=== PATIENT | female | born 1950 | race African-American/Black ===

== ENCOUNTER 2016-11-23 16:42 | Inpatient (IN) | payer OTHER, MEDICAID ==
[~2016-11-23] VITALS: Ht 175.3 cm; Wt 101.2 kg
[~2016-11-23 16:42] MED LIST: ALLO100T PO; AMLO5TAB4 PO; AMLO5TAB92 PO; ASPI81TA2 PO; BENA40TA2 PO; CALC0.258 PO; CINN1POW PO; COD1CAPS PO; DOCU250C PO; DOXA2TAB PO; FERR-31 PO; FERR-57 PO; GEMF600T3 PO; GLIP10TA11 PO; HYDR25TA4 PO; INDO50CA PO; LOP600 PO; LUTE20CA PO; METF-305 PO; NOR10 PO; UBID60CA6 PO; VIT1TABL44 PO
[2016-11-23 20:30] VITALS: BP 157/76; PULSE 63; RESP 20; TEMP 98.8; O2SAT 93
[2016-11-23 20:45] VITALS: PULSE 61; RESP 18; TEMP 98.4; O2SAT 95
--- NOTE | 2016-11-23 21:14 | NUR ---
OPENING NOTES PATIENT IS SITTING IN SEMI-ORTEGA'S POSITION. AAO X4, EVEN AND UNLABORED RESPIRATIONS. NO S/S OF ACUTE DISTRESS NOTED. FAMILY AT BEDSIDE. BED IN LOWEST POSITION, CALL LIGHT WITHIN REACH.
[2016-11-23] MEDS ORDERED: INSULIN REGULAR, HUMAN 100 UNITS/ML, 10 ML VIAL (novoLIN R) SUBCUT PRN (21:30)
[2016-11-23] MEDS ORDERED: DEXTROSE 50% JECT 50 ML DISP.SYRIN IVP PRN (21:30)
[2016-11-23 21:46] LABS: BASOPHILS # (AUTO) 0.1 K/uL (0.0-0.2); BASOPHILS % (AUTO) 2.1 % (0.0-2.0); EOSINOPHILS # (AUTO) 0.2 K/uL (0.0-0.4); EOSINOPHILS % (AUTO) 4.2 % (0.0-4.0); LYMPHOCYTES # (AUTO) 0.8 K/uL (1.0-5.5); LYMPHOCYTES % (AUTO) 13.9 % (20.5-51.5); MEAN CORPUSCULAR HEMOGLOBIN 26 pg (27-31); MEAN CORPUSCULAR HGB CONC 31 % (32-36); MEAN CORPUSCULAR VOLUME 85 fL (79.0-98.0); MONOCYTES # (AUTO) 0.4 K/uL (0.0-1.0); MONOCYTES % (AUTO) 7.3 % (1.7-9.3); NEUTROPHILS # (AUTO) 4.1 K/uL (1.8-7.7); NEUTROPHILS % (AUTO) 72.5 % (40.0-70.0); PLATELET COUNT (AUTO) 318 K/uL (130-430); RED CELL DISTRIBUTION WIDTH 16.8 % (9.0-15.0); WHITE BLOOD COUNT (AUTO) 5.6 K/uL (4.8-10.8)
--- NOTE | 2016-11-23 21:54 | NUR ---
CRITICAL VALUE H/H CRITICAL VALUE, LAB CALLED H/H 6.0/19.6.
[2016-11-23 21:55] LABS: HEMATOCRIT 19.6 % (36-48)
--- NOTE | 2016-11-23 21:56 | NUR ---
DR. ADAMSON CRITICAL VALUE NOTIFICATION DR. ADAMSON ON ROUNDS, REPORTED CRITICAL VALUE IN PERSON AT [id number]. NEW ORDERS PLACED.
[2016-11-23 22:10] LABS: CALCIUM 9.2 mg/dL (8.4-11.0); CREATININE 4.17 mg/dL (0.55-1.30); POTASSIUM 4.7 mmol/L (3.5-5.1)
[2016-11-23 22:15] LABS: ALBUMIN 3.3 g/dL (3.4-4.8); TOTAL BILIRUBIN 0.4 mg/dL (0.0-1.0); TOTAL PROTEIN, SERUM 7.2 g/dL (6.4-8.3)
[2016-11-23] MEDS ORDERED: FUROSEMIDE 40 MG/4 ML VIAL IVP ONE (22:15)
[2016-11-23 22:25] LABS: IRON (SERUM) 18 mcg/dL (37-145); TOTAL IRON BIND. CAPACITY 231 ug/dL (250-450)
--- NOTE | 2016-11-23 22:42 | NUR ---
CONSULT: CONSULT CALLED FOR DR. LU HERNANDEZ SPOKE WITH SARA TREJO IS FIELD RETURN REPAIRER FOR DR. LEIGH REASON FOR CONSULT: R.F. NUMBER I CALLED: [phone]
[2016-11-23] MEDS ORDERED: PANTOPRAZOLE GRANULES PACKET 40 MG GT ONE (23:15)
[2016-11-24] VITALS (7 sets, daily range): BP systolic 161–190; BP diastolic 74–110; PULSE 55–98; RESP 18–20; TEMP 97–98.2; O2SAT 95–100
[2016-11-24] MEDS ORDERED: SOD FERRIC GLUC COMPLEX/SUC 125 MG in NS 100 ML IV SCH ×2
[2016-11-24] MEDS ORDERED: IPRATROPIUM/ALBUTEROL SULFATE 3 ML AMPUL.NEB INH PRN (00:15)
--- NOTE | 2016-11-24 01:15 | NUR ---
BLOOD TRANSFUSION START 1 UNIT PACKED RED BLOOD CELLS
--- NOTE | 2016-11-24 01:30 | NUR ---
15 MIN INTO BLOOD TRANSFUSION PATIENT IS TOLERATING WELL. NO S/S OF REJECTION OR ACUTE DISTRESS NOTED. RESPIRATIONS EVEN AND UNLABORED, OXYGEN SATURATION IS 100% ON 2L NASAL CANNULA. SKIN IS WARM AND DRY TO TOUCH. PATIENT DENIES PAIN OR DISCOMFORT. BED IN LOWEST POSITION, BED ALARM ON, CALL LIGHT WITHIN REACH. WILL CONTINUE TO MONITOR CLOSELY.
--- NOTE | 2016-11-24 03:52 | NUR ---
ROUNDS PATIENT IS SLEEPING IN SEMI-ORTEGA'S POSITION. NO ACUTE S/S OF DISTRESS NOTED. VISIBLE RISE AND FALL OF CHEST, EVEN RESPIRATIONS.BED IN LOWEST POSITION, BED ALARM ON, CALL LIGHT WITHIN REACH. WILL CONTINUE TO MONITOR FREQUENTLY.
--- NOTE | 2016-11-24 04:20 | NUR ---
BLOOD TRANSFUSION COMPLETE PATIENT TOLERATED WELL.
--- NOTE | 2016-11-24 05:25 | NUR ---
BLOOD TRANSFUSION #2 START
--- NOTE | 2016-11-24 05:42 | NUR ---
15 MINUTES INTO BLOOD TRANSFUSION #2 PATIENT IS TOLERATING WELL. AAOX4. IV PATENT AND INFUSING. VITAL SIGNS WITHIN PATIENTS NORMAL LIMITS. NO S/S OF ACUTE DISTRESS NOTED. WILL CONTINUE TO MONITOR CLOSELY. BED IN LOWEST POSITION, BED ALARM ON, CALL LIGHT WITHIN REACH.
[2016-11-24 06:21] LABS: BILIRUBIN,URINE NEGATIVE (NEGATIVE); CLARITY/URINE CLEAR (CLEAR); COLOR,URINE YELLOW (YELLOW); GLUCOSE,URINE NEGATIVE (NEGATIVE); KETONES,URINE NEGATIVE (NEGATIVE); LEUKOCYTE ESTERASE ,URINE NEGATIVE (NEGATIVE); NITRITE, URINE NEGATIVE (NEGATIVE); PROTEIN URINE 3+ (NEGATIVE); UROBILINOGEN,URINE 0.2 (0.2-1.0)
[2016-11-24 06:42] LABS: BLOOD, URINE TRACE (NEGATIVE)
[2016-11-24 06:43] LABS: BACTERIA,URINE RARE /HPF (None Seen); RBC,URINE 0-3 /HPF (0-3); WBC,URINE 0-3 /HPF (0-3); YEAST,URINE Few /HPF (None Seen)
--- NOTE | 2016-11-24 07:20 | NUR ---
CLOSING NOTES REPORT GIVEN TO LEONOR AT BEDSIDE. BLOOD TRANSFUSION RUNNING. NO S/S OF ACUTE DISTRESS NOTED. 2L O2 TITRATION BY NASAL CANNULA WITH OXYGEN SATURATION AT 99-100%. PATIENT IS SITTING UP IN BED. BED IN LOWEST POSITION, BED ALARM ON, CALL LIGHT WITHIN REACH.
--- NOTE | 2016-11-24 07:55 | NUR ---
END BLOOD TRANSFUSION PATIENT TOLERATED WELL. IV PATENT, NO S/S OF ALLERGIC REACTION. PATIENT DENIES PAIN AND SHORTNESS OF BREATH.
--- NOTE | 2016-11-24 08:00 | NUR ---
Initial note PT LAYING IN BED, RESTING, EASY TO AROUSE, ALERT AND ORIENTED X4, NO S/S OF DISTRESS OR COMPLAINT OF PAIN, BP ELEVATED, WILL GIVE AM BLOOD PRESSURE MEDICATION AND FOLLOW UP, BLOOD TRANSFUSION COMPLETE, IV FLUSHED AND SALINE LOCKED, BLE NOTED, PT REFUSES SCD PLACEMENT DESPITE EDUCATION, PLAN OF CARE DISCUSSED WITH PATIENT, PT VERBALIZED UNDERSTANDING, PT REORIENTED OT USE OF CALL LIGHT AND IT IS PLACED WITHIN REACH, SAFETY MEASURES IN PLACE, BED IN LOW POSITION AND LOCKED, WILL FOLLOW UP
[2016-11-24] MEDS: DOXAZOSIN MESYLATE 2 MG TABLET PO SCH ×2 (08:23→21:36)
[2016-11-24] MEDS: ASPIRIN 81 MG TAB.CHEW PO SCH (08:23)
[2016-11-24] MEDS: FERROUS SULFATE 325 MG TABLET.DR PO SCH ×3 (08:23→21:35)
[2016-11-24] MEDS: NEPHROVITE, (FOLIC ACID/VITAMIN B COMP W-C 1 TAB) PO SCH (08:23)
[2016-11-24] MEDS: BENAZEPRIL HCL 20 MG TABLET (LOTENSIN) PO SCH (08:24)
[2016-11-24] MEDS: amLODIPine BESYLATE 10 MG TABLET PO SCH (08:24)
[2016-11-24] MEDS: ALLOPURINOL 100 MG TABLET (ZYLOPRIM) PO SCH (08:24)
[2016-11-24] MEDS: CALCITRIOL 0.25 MCG CAPSULE PO SCH (08:24)
[2016-11-24] MEDS: GEMFIBROZIL 600 MG TABLET (LOPID) PO SCH ×2 (08:24→21:36)
[2016-11-24] MEDS: PANTOPRAZOLE GRANULES PACKET 40 MG GT SCH ×2 (08:25→21:36)
[2016-11-24] MEDS: FUROSEMIDE 40 MG/4 ML VIAL IVP SCH ×2 (08:25→22:50)
[2016-11-24] MEDS: DOCUSATE SODIUM 250 MG CAPSULE PO SCH ×2 (08:25→21:35)
[2016-11-24] MEDS ORDERED: EPOETIN ALFA 4,000 UNITS/ML VIAL SUBCUT SCH (09:00)
[2016-11-24] MEDS: SOD FERRIC GLUC COMPLEX/SUC 125 MG in NS 100 ML IV SCH (09:12)
--- NOTE | 2016-11-24 09:37 | NUR ---
Nutrition Update Charles Scale 14 noted. Pt admitted for severe anemia. Diet: regular, CCHO low carb-45 gm, PRO 60 gms BMI: 32.9 kg/m2 RD to follow per nutrition care standards.
--- NOTE | 2016-11-24 10:00 | NUR ---
ROUNDS PT SITTING UP IN BEDSIDE CHAIR, PT STATES SHE HAS NO NEEDS AT THIS TIME, SAFETY MEASURES IN PLACE, CALL LIGHT WITHIN REACH, WILL FOLLOW UP.
--- NOTE | 2016-11-24 12:00 | NUR ---
DR LEIGH TO REVIEW CONSULT. MADE AWARE OF PATIENTS HISTORY AND CURRENT LAB RESULTS, ORDERED BMP IN AM, US OF RENAL, AND MCGHEE CATHETER PLACEMENT, WILL PLACE ORDERS AND FOLLOW UP
[2016-11-24 12:30] LABS: BASOPHILS % (AUTO) 0.4 % (0.0-2.0); EOSINOPHILS # (AUTO) 0.2 K/uL (0.0-0.4); EOSINOPHILS % (AUTO) 3.6 % (0.0-4.0); HEMATOCRIT 23.7 % (36-48); HEMOGLOBIN 7.4 g/dL (12.0-16.0); LYMPHOCYTES # (AUTO) 0.6 K/uL (1.0-5.5); MEAN CORPUSCULAR HEMOGLOBIN 26 pg (27-31); MEAN CORPUSCULAR HGB CONC 31 % (32-36); MEAN CORPUSCULAR VOLUME 84 fL (79.0-98.0); MONOCYTES # (AUTO) 0.4 K/uL (0.0-1.0); MONOCYTES % (AUTO) 5.6 % (1.7-9.3); NEUTROPHILS # (AUTO) 5.1 K/uL (1.8-7.7); NEUTROPHILS % (AUTO) 81.4 % (40.0-70.0); PLATELET COUNT (AUTO) 290 K/uL (130-430); RED BLOOD CELL COUNT(AUTO) 2.81 MIL/uL (4.2-6.2); RED CELL DISTRIBUTION WIDTH 15.2 % (9.0-15.0); WHITE BLOOD COUNT (AUTO) 6.3 K/uL (4.8-10.8)
--- NOTE | 2016-11-24 12:30 | NUR ---
AVIATION ELECTRONICS TECHNICIAN REPORTED PT BLOOD PRESSURE 186/88, WILL FOLLOW UP WITH PRN BLOOD PRESSURE MEDICATION.
[2016-11-24 12:51] LABS: CALCIUM 9.1 mg/dL (8.4-11.0); CREATININE 4.17 mg/dL (0.55-1.30); PHOSPHORUS 4.1 mg/dL (2.7-4.5); POTASSIUM 4.5 mmol/L (3.5-5.1); THYROID STIMULATING HORMONE 0.41 uIu/mL (0.34-4.82)
--- NOTE | 2016-11-24 13:20 | NUR ---
PT REFUSED MCGHEE CATHETER INSERTION DESPITE EDUCATION, PT STATES SHE WILL THIN ABOUT IT BUT AT THE MOMENT THE ANSWER IS NO, PT ALSO STATES SHE HAS BEEN TOLD BEFORE THAT SHE SHOULD BE ON DIALYSIS AND REFUSES THAT
[2016-11-24] MEDS: cloNIDine HCL 0.2 MG TABLET PO PRN ×2 (14:02→21:36)
--- NOTE | 2016-11-24 14:45 | NUR ---
LANDRY WOUND CARE NURSE ASSESSED PATIENTS WOUND TO LEFT BUTTOCK , PT EDUCATED THAT WOUND IS CAUSED BY MOISTURE DUE TO PATIENT USE OF ADULT DIAPERS, PT STATES SHE HAS TO USE THEM DUE TO LEAKAGE, PT STATES SHE WILL CONTINUE TO USE DESPITE EDUCATION. TREATMENT IS APPLICATION OF MOISTURE BARRIER AND MONITOR. PT VERBALIZED UNDERSTANDING. WILL FOLLOW UP
--- NOTE | 2016-11-24 15:47 | NUR ---
DR LEIGH AT BEDSIDE, MADE AWARE OF PT REFUSE MCGHEE CATHETER PLACEMENT, MD AWARE OF PT INCREASED BLOOD PRESSURE, MD ORDERED NEW MEDICATIONS, DIET AND FLUID RESTRICTION, PT VERBALIZED UNDERSTANDING, STATES SHE WILL CONSIDER PERITONEAL DIALYSIS.
[2016-11-24] MEDS ORDERED: cloNIDine HCL 0.1 MG/24 HR PATCH.TDWK TD ONE (16:30)
--- NOTE | 2016-11-24 17:00 | NUR ---
DR ADAMSON AND DR LEIGH AT BEDSIDE, SPEAKING WITH PATIENT AND DAUGHTER REGARDING PT NEED FOR DIALYSIS.
--- NOTE | 2016-11-24 19:00 | NUR ---
CLOSING NOTE PT AWAKE, ALERT AND ORIENTED X4, DAUGHTER AT BEDSIDE, NO S/S OF DISTRESS OR COMPLAINT OF PAIN, IV TO RFA INTACT AND NO S/S OF INFILTRATION NOTED, PT CONTINUES TO REFUSES SCD PLACEMENT DESPITE EDUCATION, ALL NEEDS ATTENDED TO THROUGHOUT SHIFT, SAFETY MEASURES MAINTAINED, WILL GIVE REPORT TO FOLLOWING SHIFT.
--- NOTE | 2016-11-24 19:35 | NUR ---
Initial Notes Pt sleeping, but easily arousable. Pt is awake, alert and oriented X4, with some mild disorientation. Pt oriented to place, time. Pt denies any pain or discomfort at this time. Plan of care discussed with pt and family at bedside, all verbalized understanding. Blood pressure elevated, will medicate for high blood pressure as ordered. Pt is on 2L N/C with good O2 saturation, 100%. Breathing is even and unlabored. Pt refused to use SCD's at bedside. Safety precautions in place, side rails up x3 with bed in lowest, locked position, bed alarm on at all times. All needs met at this time. Call light in reach. Will continue to monitor.
[2016-11-24] MEDS: BUMEX 1 MG/4 ML VIAL IVP SCH (22:51)
--- NOTE | 2016-11-24 23:27 | NUR ---
Rounds Pt is sleeping at this time with family at bedside. No acute distress or sob noted. Safety measures in place. Call light in hand. Will continue to monitor.
[2016-11-25] VITALS (7 sets, daily range): BP systolic 144–173; BP diastolic 64–79; PULSE 59–81; RESP 16–19; TEMP 96.8–99.3; O2SAT 91–98
--- NOTE | 2016-11-25 02:00 | NUR ---
Rounds Pt is sleeping comfortably at this time. Family at bedside with pt. No acute distress or sob noted. Call light in reach. Will continue to monitor.
--- NOTE | 2016-11-25 03:45 | NUR ---
Rounds Pt is sleeping at this time. No acute distress noted. Call light in reach. Will continue to monitor.
--- NOTE | 2016-11-25 06:27 | NUR ---
Closing Notes Pt is awake, alert and oriented. Pt in good spirits, family at bedside. Blood sugar checked, 99. VSS. IV intact. All needs met throughout shift. Will endorse care to am nurse. Call light within reach. Will continue to monitor.
[2016-11-25 06:48] LABS: CALCIUM 9.1 mg/dL (8.4-11.0); CREATININE 4.52 mg/dL (0.55-1.30); POTASSIUM 4.2 mmol/L (3.5-5.1)
[2016-11-25 07:14] LABS: BASOPHILS % (AUTO) 0.5 % (0.0-2.0); EOSINOPHILS # (AUTO) 0.3 K/uL (0.0-0.4); EOSINOPHILS % (AUTO) 4.3 % (0.0-4.0); HEMATOCRIT 23.2 % (36-48); HEMOGLOBIN 7.3 g/dL (12.0-16.0); LYMPHOCYTES # (AUTO) 0.8 K/uL (1.0-5.5); LYMPHOCYTES % (AUTO) 12.1 % (20.5-51.5); MEAN CORPUSCULAR HEMOGLOBIN 27 pg (27-31); MEAN CORPUSCULAR HGB CONC 32 % (32-36); MEAN CORPUSCULAR VOLUME 86 fL (79.0-98.0); MONOCYTES # (AUTO) 0.4 K/uL (0.0-1.0); MONOCYTES % (AUTO) 6.4 % (1.7-9.3); NEUTROPHILS # (AUTO) 5.4 K/uL (1.8-7.7); NEUTROPHILS % (AUTO) 76.7 % (40.0-70.0); PLATELET COUNT (AUTO) 287 K/uL (130-430); RED CELL DISTRIBUTION WIDTH 15.7 % (9.0-15.0); WHITE BLOOD COUNT (AUTO) 6.9 K/uL (4.8-10.8)
--- NOTE | 2016-11-25 08:00 | NUR ---
NOTE PT DROWSY AT THIS TIME, BUT EASILY AROUSABLE. PT'S SISTER AT BEDSIDE IN RECLINER AT THIS TIME. NO SOB/RESP DISTRESS OR PAIN/DISCOMFORT NOTED AT THIS TIME. IV IN RIGHT HAND INTACT AND PATENT AT THIS TIME. CALL LIGHT WITHIN REACH.
[2016-11-25] MEDS: FUROSEMIDE 40 MG/4 ML VIAL IVP SCH ×2 (08:50→20:54)
[2016-11-25] MEDS: PANTOPRAZOLE GRANULES PACKET 40 MG GT SCH ×2 (08:50→20:53)
[2016-11-25] MEDS: BUMEX 1 MG/4 ML VIAL IVP SCH ×2 (08:50→21:02)
[2016-11-25] MEDS: amLODIPine BESYLATE 10 MG TABLET PO SCH (08:51)
[2016-11-25] MEDS: BENAZEPRIL HCL 20 MG TABLET (LOTENSIN) PO SCH (08:51)
[2016-11-25] MEDS: DOXAZOSIN MESYLATE 2 MG TABLET PO SCH ×2 (08:52→20:53)
[2016-11-25] MEDS: NEPHROVITE, (FOLIC ACID/VITAMIN B COMP W-C 1 TAB) PO SCH (08:52)
[2016-11-25] MEDS: CALCITRIOL 0.25 MCG CAPSULE PO SCH (08:52)
[2016-11-25] MEDS: ASPIRIN 81 MG TAB.CHEW PO SCH (08:52)
[2016-11-25] MEDS: DOCUSATE SODIUM 250 MG CAPSULE PO SCH ×2 (08:52→20:53)
[2016-11-25] MEDS: ALLOPURINOL 100 MG TABLET (ZYLOPRIM) PO SCH (08:52)
[2016-11-25] MEDS: FERROUS SULFATE 325 MG TABLET.DR PO SCH ×3 (08:52→21:34)
[2016-11-25] MEDS: GEMFIBROZIL 600 MG TABLET (LOPID) PO SCH ×2 (08:53→20:53)
[2016-11-25] MEDS: SOD FERRIC GLUC COMPLEX/SUC 125 MG in NS 100 ML IV SCH (09:00)
--- NOTE | 2016-11-25 10:00 | NUR ---
NOTE PT WAS SEEN AND EVALUATED BY DR ADAMSON AT THIS TIME. QUESTIONS/CONCERNS WERE ANSWERED AT THIS TIME. PT'S IRON IVPB WAS INFUSED AT THIS TIME. NO NEEDS NOTED AT THIS TIME. CALL LIGHT WITHIN REACH.
[2016-11-25 11:19] LABS: HEMOGLOBIN A1C 5.2 % (4.8-5.6)
--- NOTE | 2016-11-25 12:20 | NUR ---
NOTE PT AMBULATED WITH STAFF MEMBER TO SHOWER AT THIS TIME. IV WAS SALINE LOCKED AND COVERED. PT AMBULATES WITH STEADY GAIT. NO SOB/RESP DISTRESS OR PAIN/DISCOMFORT OR WEAKNESS/DIZZINESS NOTED.
[2016-11-25 15:10] LABS: FOLATE (FOLIC ACID) >20.0 ng/mL (>3.0)
--- NOTE | 2016-11-25 16:00 | NUR ---
NOTE PT'S FIRST UNIT OF PRBC WAS STARTED AT THIS TIME. VS WERE STABLE AT THIS TIME. CALL LIGHT WITHIN REACH. PT'S BROTHER AT BEDSIDE. NO NEEDS NOTED AT THIS TIME.
[2016-11-25] MEDS ORDERED: EPOETIN ALFA 4,000 UNITS/ML VIAL SUBCUT SCH (17:00)
--- NOTE | 2016-11-25 18:10 | NUR ---
NOTE PT SITTING ON SIDE OF BED EATING HER DINNER, SISTER AT BEDSIDE AT THIS TIME. RIGHT HAND HAS BLOOD TRANSFUSION RUNNING AT THIS TIME. PT HAS O2 AT 2L/NC ON AT THIS TIME FOR COMFORT. NO NEEDS NOTED. NO SOB/RESP DISTRESS OR PAIN/DISCOMFORT NOTED. CALL LIGHT WITHIN REACH.
--- NOTE | 2016-11-25 19:10 | NUR ---
INITIAL NOTES RECVD PT IN BED, WITH SISTER @ BEDSIDE. PT IS A/A/O X4. NO S/S OF ANY PAIN OR DISTRESS NOTED. IV NOTED TO R HAND G 22 NO INFILTRATE WITH, WITH GOOD BLOOD RETURN. ALL EXTREMITIES ARE STRONG, BRP. DISCUSSED PLAN OF CARE WITH PT AND VERBALIZED UNDERSTANDING. CALL LIGHT WITHIN REACH, WILL CONT TO MONITOR.
--- NOTE | 2016-11-25 21:10 | NUR ---
ROUNDS PT IS RESTING COMFORTABLY IN BED. NO S/S OF ANY DISTRESS NOTED. BED IN LOW POSITION WITH SIDE RAILS UPX2. CALL LIGHT IN REACH.
--- NOTE | 2016-11-25 23:10 | NUR ---
ROUNDS PT IS RESTING COMFORTABLY IN BED. NO S/S OF ANY DISTRESS NOTED. BED IN LOW POSITION WITH SIDE RAILS UPX2. CALL LIGHT IN REACH.
[2016-11-26 00:38] VITALS: BP 173/77; PULSE 61; RESP 18; TEMP 97.1; O2SAT 97
--- NOTE | 2016-11-26 01:10 | NUR ---
ASSISTED TO COMMODE ASSISTED TO COMMODE AND SAFELY BACK TO BED. PT IS RESTING COMFORTABLY IN BED. NO S/S OF ANY DISTRESS NOTED. BED IN LOW POSITION WITH SIDE RAILS UPX2. CALL LIGHT IN REACH.
--- NOTE | 2016-11-26 03:10 | NUR ---
ROUNDS PT IS RESTING COMFORTABLY IN BED. NO S/S OF ANY DISTRESS NOTED. BED IN LOW POSITION WITH SIDE RAILS UPX2. CALL LIGHT IN REACH.
[2016-11-26 03:28] VITALS: BP 182/89; PULSE 63; RESP 18; TEMP 97.6
--- NOTE | 2016-11-26 05:10 | NUR ---
ASSISTED TO COMMODE ASSISTED TO COMMODE AND SAFELY BACK TO BED. NO S/S OF ANY DISTRESS NOTED. BED IN LOW POSITION WITH CALL LIGHT WITHIN REACH. WILL CONT TO MONITOR.
--- NOTE | 2016-11-26 06:33 | NUR ---
FINAL NOTES PT IS SLEEPING COMFORTABLY AT THIS TIME. NO S/S OF ANY DISTRESS NOTED. V/S ARE WNL. ALL NEEDS MET AND ANTICIPATED BY NOC NURSES. BED IN LOW POSITION WITH SIDE RAILS UP X2 FOR SAFETY.CALL LIGHT WITHIN REACH, ENDORSED.
[2016-11-26 06:34] LABS: CALCIUM 9.3 mg/dL (8.4-11.0); CREATININE 4.43 mg/dL (0.55-1.30); POTASSIUM 4.1 mmol/L (3.5-5.1)
[2016-11-26 06:42] LABS: BASOPHILS % (AUTO) 0.7 % (0.0-2.0); EOSINOPHILS # (AUTO) 0.4 K/uL (0.0-0.4); EOSINOPHILS % (AUTO) 6.7 % (0.0-4.0); HEMATOCRIT 26.2 % (36-48); HEMOGLOBIN 8.4 g/dL (12.0-16.0); LYMPHOCYTES # (AUTO) 0.8 K/uL (1.0-5.5); MEAN CORPUSCULAR HEMOGLOBIN 27 pg (27-31); MEAN CORPUSCULAR HGB CONC 32 % (32-36); MEAN CORPUSCULAR VOLUME 85 fL (79.0-98.0); MONOCYTES # (AUTO) 0.4 K/uL (0.0-1.0); MONOCYTES % (AUTO) 5.7 % (1.7-9.3); NEUTROPHILS # (AUTO) 4.7 K/uL (1.8-7.7); NEUTROPHILS % (AUTO) 73.9 % (40.0-70.0); PLATELET COUNT (AUTO) 293 K/uL (130-430); RED BLOOD CELL COUNT(AUTO) 3.09 MIL/uL (4.2-6.2); RED CELL DISTRIBUTION WIDTH 15.8 % (9.0-15.0); WHITE BLOOD COUNT (AUTO) 6.3 K/uL (4.8-10.8)
[2016-11-26 07:19] LABS: BILIRUBIN,URINE NEGATIVE (NEGATIVE); CLARITY/URINE CLEAR (CLEAR); COLOR,URINE YELLOW (YELLOW); GLUCOSE,URINE NEGATIVE (NEGATIVE); KETONES,URINE NEGATIVE (NEGATIVE); LEUKOCYTE ESTERASE ,URINE NEGATIVE (NEGATIVE); NITRITE, URINE NEGATIVE (NEGATIVE); PROTEIN URINE 2+ (NEGATIVE); UROBILINOGEN,URINE 0.2 (0.2-1.0)
[2016-11-26 07:22] LABS: BLOOD, URINE TRACE (NEGATIVE)
[2016-11-26 07:31] LABS: BACTERIA,URINE RARE /HPF (None Seen); RBC,URINE 0-3 /HPF (0-3); WBC,URINE 0-3 /HPF (0-3)
[2016-11-26 07:32] LABS: YEAST,URINE Many /HPF (None Seen)
--- NOTE | 2016-11-26 08:33 | NUR ---
initial notes: pt on bed resting. awake, alert and oriented. no distress noted. discussed plan of care. call light within reach.
[2016-11-26 08:34] VITALS: BP 193/87; PULSE 68; RESP 16; TEMP 98.5
[2016-11-26] MEDS: PANTOPRAZOLE GRANULES PACKET 40 MG GT SCH ×2 (08:35→22:06)
[2016-11-26] MEDS: FERROUS SULFATE 325 MG TABLET.DR PO SCH ×3 (08:36→22:07)
[2016-11-26] MEDS: BENAZEPRIL HCL 20 MG TABLET (LOTENSIN) PO SCH (08:36)
[2016-11-26] MEDS: amLODIPine BESYLATE 10 MG TABLET PO SCH (08:37)
[2016-11-26] MEDS: CALCITRIOL 0.25 MCG CAPSULE PO SCH (08:37)
[2016-11-26] MEDS: NEPHROVITE, (FOLIC ACID/VITAMIN B COMP W-C 1 TAB) PO SCH (08:37)
[2016-11-26] MEDS: DOXAZOSIN MESYLATE 2 MG TABLET PO SCH ×2 (08:38→22:06)
[2016-11-26] MEDS: ALLOPURINOL 100 MG TABLET (ZYLOPRIM) PO SCH (08:38)
[2016-11-26] MEDS: GEMFIBROZIL 600 MG TABLET (LOPID) PO SCH ×2 (08:38→22:07)
[2016-11-26] MEDS: DOCUSATE SODIUM 250 MG CAPSULE PO SCH ×2 (08:38→21:00)
[2016-11-26] MEDS: FUROSEMIDE 40 MG/4 ML VIAL IVP SCH ×2 (08:38→22:07)
[2016-11-26] MEDS: ASPIRIN 81 MG TAB.CHEW PO SCH (08:38)
[2016-11-26 08:41] LABS: RETICULOCYTE COUNT 2.9 % (0.5-1.5)
[2016-11-26] MEDS: SOD FERRIC GLUC COMPLEX/SUC 125 MG in NS 100 ML IV SCH (08:53)
[2016-11-26] MEDS: BUMEX 1 MG/4 ML VIAL IVP SCH ×2 (08:53→22:12)
[2016-11-26] MEDS: hydrALAZINE HCL 20 MG/ML VIAL IVP PRN ×2 (10:53→17:22)
--- NOTE | 2016-11-26 10:58 | NUR ---
CONSULT CARDIO CHF DR AMOR [phone] DR ACOSTA MANAGEMENT ASSISTANT S/W EDD OFFICE @ [phone]
[2016-11-26] MEDS ORDERED: BISACODYL 5 MG TABLET.DR (DULCOLAX) PO ONE (11:00)
[2016-11-26] MEDS ORDERED: BISACODYL 10 MG/SUPPOSITORY RC PRN (11:00)
[2016-11-26] MEDS: hydrALAZINE HCL 25 MG TABLET PO SCH ×3 (11:24→22:00)
--- NOTE | 2016-11-26 11:25 | NUR ---
rounds: pt on bed resting. no distress noted. Seen by Dr. Titus.
--- NOTE | 2016-11-26 12:00 | NUR ---
DISCHARGE PLANNING DC planning order to arrange home health. Faxed home health referral to [phone]. Will follow up. Addendum: 11/26/16 at 1426 by Sarah Martell DP Spoke with Katlyn at [facility] who will assist DCP in finding home health that services [facility]. DCP will follow up.
[2016-11-26 15:14] VITALS: Ht 175.3 cm; Wt 101.2 kg
[2016-11-26 15:32] VITALS: BP 162/74; PULSE 68
--- NOTE | 2016-11-26 15:38 | NUR ---
rounds: pt on bed with family. no distress noted.
--- NOTE | 2016-11-26 17:26 | NUR ---
BP: increased BP. Due meds given. continue to monitor.
--- NOTE | 2016-11-26 18:50 | NUR ---
closing notes: pt on bed singing with family. stable. needs attended. call light within reach.
[2016-11-26 19:20] VITALS: BP 143/68; PULSE 62; RESP 20; TEMP 98.5; O2SAT 98
--- NOTE | 2016-11-26 19:20 | NUR ---
INITIAL NOTES; -Pt is a/ox4, resting in bed. Pt denies any pain,sob,or any acute distress. Saline lock of rt f/a #22, patent,no s/s any infiltration noted. BSC with assistance. Pt is able to ambulate with a walker and mini assistance. Instructed pt not to get out bed by self, to use call light for assistance, pt verbalized understanding. Fall precaution in place. Discussed poc,all safety measures, pain mgmt with pt, pt verbalized understanding. Call light /win reach. Continue to monitor pt.
--- NOTE | 2016-11-26 22:07 | NUR ---
ROUNDS; -Pt is resting in bed. Pt denies any pain,chest pain,sob,or any acute distress. Gave all po with applesauce, pt tolerated well. Pt refused Colace po and Apresoline po this time. Pt had large bowel movt earlier and collected and sent to lab already. Call light /win reach. Continue to monitor pt.
[2016-11-27] MEDS: hydrALAZINE HCL 20 MG/ML VIAL IVP PRN (00:10)
--- NOTE | 2016-11-27 00:10 | NUR ---
ROUNDS; ELEVATED BP -Pt denies any chest pain,pain,sob,or any acute distress. Gave Apresoline 10mg IVP for wr=814/83,86. Fall precaution in place. Call light /win reach. Continue to monitor pt.
[2016-11-27 00:29] VITALS: BP 166/85; PULSE 68; RESP 18; TEMP 98.4; O2SAT 94
--- NOTE | 2016-11-27 02:15 | NUR ---
ROUNDS; PT IS STILL AT BATHROOM -Pt is sitting on the toilet. Pt stated,'' I' m having a diarrhea and I'm okay.'' Pt denies any chest pain,pain,sob,or any acute distress. Instructed pt to use call light when ready to return to bed, pt verbalized understanding. Fall precaution in place. Call light /win reach. Continue to monitor pt.
--- NOTE | 2016-11-27 02:21 | NUR ---
RETURNED TO BED FROM BATHROOM SAFELY
--- NOTE | 2016-11-27 03:47 | NUR ---
ROUNDS; ELEVATED BP -Pt is resting. No s/s any acute distress noted. Fall precaution in place. Call light /win reach. Continue to monitor pt.
[2016-11-27 05:58] VITALS: BP 169/71; PULSE 74; RESP 18; TEMP 98.4; O2SAT 95
[2016-11-27] MEDS: hydrALAZINE HCL 25 MG TABLET PO SCH ×2 (06:02→14:10)
--- NOTE | 2016-11-27 06:02 | NUR ---
ELEVATED BP -Gave Apresoline 50mg po for elevated il=983/87,74. Fall precaution in place. Call light /win reach. Continue to monitor p
--- NOTE | 2016-11-27 06:03 | NUR ---
ROUNDS; BLOOD SUGAR=87, NO SSI COVERAGE, GAVE 4OZ APPLE JUICE AND APPLE SAUCE -Pt is resting in bed. Pt denies any pain,sob,or any acute distress. Saline lock of rt f/a #22, patent,no s/s any infiltration noted. BSC with assistance. Fall precaution in place. Call light /win reach. Continue to monitor pt.
--- NOTE | 2016-11-27 06:45 | NUR ---
CLOSING NOTES; -Pt is resting in bed. No s/s any pain,sob,or any acute distress noted. Saline lock of rt f/a #22, patent,no s/s any infiltration noted. BSC with assistance. Pt is able to ambulate with a walker and mini assistance. Fall precaution in place. Call light /win reach. Continue to monitor pt.
[2016-11-27 06:56] LABS: CREATININE 4.76 mg/dL (0.55-1.30); POTASSIUM 3.7 mmol/L (3.5-5.1)
[2016-11-27 07:00] LABS: HEMATOCRIT 26.9 % (36-48); HEMOGLOBIN 8.5 g/dL (12.0-16.0); MEAN CORPUSCULAR HEMOGLOBIN 27 pg (27-31); MEAN CORPUSCULAR HGB CONC 32 % (32-36); MEAN CORPUSCULAR VOLUME 86 fL (79.0-98.0); PLATELET COUNT (AUTO) 300 K/uL (130-430); RED BLOOD CELL COUNT(AUTO) 3.14 MIL/uL (4.2-6.2); RED CELL DISTRIBUTION WIDTH 16.1 % (9.0-15.0)
[2016-11-27 07:41] LABS: WHITE BLOOD COUNT (AUTO) 7.1 K/uL (4.8-10.8)
--- NOTE | 2016-11-27 08:13 | NUR ---
initial notes: pt ambulatory, awake, alert and oriented. i.v. access patent. discussed plan of care. call light within reach. report received at bedside.
[2016-11-27] MEDS: NEPHROVITE, (FOLIC ACID/VITAMIN B COMP W-C 1 TAB) PO SCH (08:54)
[2016-11-27] MEDS: PANTOPRAZOLE GRANULES PACKET 40 MG GT SCH (08:54)
[2016-11-27] MEDS: ASPIRIN 81 MG TAB.CHEW PO SCH (08:56)
[2016-11-27] MEDS: DOCUSATE SODIUM 250 MG CAPSULE PO SCH (08:56)
[2016-11-27] MEDS: DOXAZOSIN MESYLATE 2 MG TABLET PO SCH (08:56)
[2016-11-27] MEDS: GEMFIBROZIL 600 MG TABLET (LOPID) PO SCH (08:56)
[2016-11-27] MEDS: ALLOPURINOL 100 MG TABLET (ZYLOPRIM) PO SCH (08:57)
[2016-11-27] MEDS: BENAZEPRIL HCL 20 MG TABLET (LOTENSIN) PO SCH (08:57)
[2016-11-27] MEDS: CALCITRIOL 0.25 MCG CAPSULE PO SCH (08:57)
[2016-11-27] MEDS: amLODIPine BESYLATE 10 MG TABLET PO SCH (08:58)
[2016-11-27] MEDS: BUMEX 1 MG/4 ML VIAL IVP SCH (08:59)
[2016-11-27] MEDS: FUROSEMIDE 40 MG/4 ML VIAL IVP SCH (09:00)
[2016-11-27] MEDS: SOD FERRIC GLUC COMPLEX/SUC 125 MG in NS 100 ML IV SCH (09:26)
[2016-11-27] MEDS: FERROUS SULFATE 325 MG TABLET.DR PO SCH ×2 (09:33→14:07)
[2016-11-27 09:49] LABS: ATYPICAL LYMPHOCYTES % 0 % (0-0); BAND % (MANUAL) 0 % (0-6); BASOPHILS % (MANUAL) 0 % (0-2); EOSINOPHILS % (MANUAL) 0 % (0-7); LYMPHOCYTES % (MANUAL) 16 % (20-46); MONOCYTES % (MANUAL) 6 % (0-11)
[2016-11-27 10:18] VITALS: BP 143/63; PULSE 68
--- NOTE | 2016-11-27 11:37 | NUR ---
rounds; pt on bed on the phone. no distress noted. accu check done. no insulin coverage needed.
[2016-11-27 12:15] VITALS: BP 153/62; PULSE 60; RESP 17; TEMP 99.3; O2SAT 95
--- NOTE | 2016-11-27 12:32 | NUR ---
DISCHARGE PLANNING Received call from Micah at [facility] unable to accept patient due to no nursing staff available to service area patient resides. Called [facility] [phone] left voice message for DCP requesting return call back. Called [facility] home health confirmed service [facility]. Faxed referral to [facility] [phone]. Will follow up. Addendum: 11/27/16 at 1250 by Sarah CHILDRESS Faxed recommended [phone]. called and spoke with leonardo who confirmed they service area of patient residence. Addendum: 11/27/16 at 1413 by Sarah CHILDRESS Spoke with Leonardo in intake dept at [facility] patient accepted and will call to make visit arrangements to see patient tomorrow.
[2016-11-27] MEDS ORDERED: FURO-149 PO (12:45)
[2016-11-27] MEDS ORDERED: HYDR-1115 PO (12:45)
[2016-11-27] MEDS ORDERED: PANT40SU2 GT (12:45)
[2016-11-27] MEDS ORDERED: DULR10 RC (12:45)
[2016-11-27] MEDS ORDERED: CAT1PAT TD (12:45)
[2016-11-27] MEDS ORDERED: ONDANSETRON HCL 4 MG/2 ML VIAL IVP PRN (14:15)
--- NOTE | 2016-11-27 15:25 | NUR ---
DC PLANNING: Per dr. Shi and dr. Titus requesting transferring the pt. to TCU at [facility] today. Dr. Shi spoke with dr. Ratliff at [facility] to expedite admission, dr. Shi will be the accepting at TCU. The referral package faxed attn to MARIUSZ Montiel fax# [phone], tel #[phone], weekend cm/ after 4 pm to call TCU tel# [phone]. Sandi Fountain RN made aware that may get room assignment tonight or weekend, and to arrange the transportation accordingly.
[2016-11-27 16:24] VITALS: BP 141/63; PULSE 70; RESP 16; TEMP 99; O2SAT 96
--- NOTE | 2016-11-27 16:44 | NUR ---
Transfer: pt refused to be transferred to [facility] today.
--- NOTE | 2016-11-27 17:10 | NUR ---
>> Per SYLVIA Bright receiving call from Tiana , accepting the pt. and gave room assignment. >> MARIUSZ spoke with the pt. per her request , that now she is "refusing to be transferred now. She said dr. Titus and dr. Shi came in and told her but she is not ready today, she wants to go when she is ready. She wants to stay here and going home tomorrow. She knows that eventually she conditions will need more care but she is not ready to make decision now. She said it is too fast for her. Notified dr. Titus that the pt. now refused TCU. then ordered dc home with homehealth . MARIUSZ informed the pt. that she has choices to go home with homehealth or transferring to TCU. She will need to appeal to medicare if she chose neither and stay here. Kaila made aware and to have the pt. sign the IM letter.
[2016-11-27 17:24] VITALS: BP 141/63; PULSE 70; RESP 16; TEMP 99; O2SAT 96
--- NOTE | 2016-11-27 18:35 | NUR ---
D/C paper work: Transitional care and medicare 2nd notice signed by pt. Verbalized understanding.
--- NOTE | 2016-11-27 18:40 | NUR ---
D/C Patient Patient given medication reconciliation form and D/C instructions. Exit Care provided. Patient verbalized understanding. MD discussed with patient the results and treatment provided. Ambulatory with steady gait for discharge to home. Patient in stable condition, ID band removed. IV catheter removed, intact and dressing applied, no active bleeding. Electronic prescription sent to preferred Pharmacy. Patient educated on pain management. All belongings sent with patient.
[2016-12-01] MEDS ORDERED: cloNIDine HCL 0.1 MG/24 HR PATCH.TDWK TD SCH (09:00)
[2016-12-01] MEDS ORDERED: cloNIDine HCL 0.2 MG/24 HR PATCH.TDWK TD SCH (09:00)
--- NOTE | 2016-12-02 13:45 | NUR ---
Discharge Follow Up Phone Call: [facility] called and spoke with pt ([phone]). Pt states that she is doing well; pt's prescriptions have been filled; there are no questions regarding discharge or medication instructions; pt has a follow up appointment scheduled with PCP, Dr. Titus, on 12/11/16; pt received first visit from [facility] on 11/30/16; pt's PCP does not require pt to weigh herself daily at this time; pt checks her blood sugar as directed by PCP. Pt did not express any other needs or concerns and denied the need for additional follow up at this time. No further follow up phone calls required at this time.
== END 2016-11-27 18:40 | disposition home health service (06) | DRG 291 ==
LOC: SMU 20:22
PROVIDERS: ADMIT Internal Medicine; ATTEND Internal Medicine
PROC: 30233N1 Transfusion of Nonautologous Red Blood Cells into Peripheral Vein, Percutaneous Approach (ICD-10-PCS; principal; 2016-11-24)
DX: I13.2 Hypertensive heart and chronic kidney disease with heart failure and with stage 5 chronic kidney disease, or end stage renal disease (principal); N18.6 End stage renal disease; I50.32 Chronic diastolic (congestive) heart failure; D50.9 Iron deficiency anemia, unspecified; D63.8 Anemia in other chronic diseases classified elsewhere; E11.21 Type 2 diabetes mellitus with diabetic nephropathy; E11.22 Type 2 diabetes mellitus with diabetic chronic kidney disease; E66.9 Obesity, unspecified; E78.5 Hyperlipidemia, unspecified; E11.40 Type 2 diabetes mellitus with diabetic neuropathy, unspecified; E11.319 Type 2 diabetes mellitus with unspecified diabetic retinopathy without macular edema; E66.01 Morbid (severe) obesity due to excess calories; M10.9 Gout, unspecified; Z82.49 Family history of ischemic heart disease and other diseases of the circulatory system; Z91.19 Patient's noncompliance with other medical treatment and regimen; Z83.3 Family history of diabetes mellitus; Z68.32 Body mass index [BMI] 32.0-32.9, adult; Z79.82 Long term (current) use of aspirin; Z79.899 Other long term (current) drug therapy; Z99.2 Dependence on renal dialysis
CPT/HCPCS: 36415; 76770; 80048; 80053; 80061; 81000-TC; 82272; 82306; 82607; 82746; 82962; 83036; 83540-TC; 83550-TC; 84100-TC; 84443-TC; 85007; 85025; 85027; 85044-TC; 86886; 86900; 86901; 86920; 93971; J0360; J0885; J1815; J1940; J2916; J3490; J7040; P9021